=== PATIENT | female | born 1960 | race Caucasian/White ===

== ENCOUNTER 2021-06-21 19:14 | Emergency (ER) | payer MEDICARE ==
[~2021-06-21] VITALS: Ht 157.5 cm; Wt 67.1 kg
[~2021-06-21 19:14] MED LIST: CIPROFLOXACIN500 M1 PO; SYNTHROID100 MCG PO; TAMSULOSIN HCL0.4 M1 PER TUBE; VICODIN 5-5001 EACH PO
[2021-06-21] MEDS ORDERED: LEVETIRACETAM500 M1 (19:21)
[2021-06-21] MEDS ORDERED: LEVO-T100 MCG (19:21)
[2021-06-21 20:39] LABS: HEMATOCRIT 41.5 % (37.0-47.0); HEMOGLOBIN 14.2 gm/dL (12.0-15.0); MCH 31.8 pg (26.0-34.0); MCHC 34.1 g/dL (28.0-37.0); MCV 93.1 fL (80.0-100.0); MPV 7.8 fl. (7.2-11.1); RBC 4.46 mil/uL (4.20-5.00); RDW-CV 13.6 % (10.5-14.5); WBC 9.5 thou/uL (4.0-11.0)
[2021-06-21 20:47] LABS: CALCIUM 8.7 mg/dL (8.5-10.1); CREATININE 0.7 mg/dL (0.6-1.3); POTASSIUM 3.4 mmol/L (3.5-5.1)
[2021-06-21 20:52] LABS: ALBUMIN 3.7 g/dL (3.4-5.0); TOTAL BILIRUBIN 0.3 mg/dL (<0.1-1.0); TOTAL PROTEIN 7.4 g/dL (6.4-8.2)
[2021-06-21 21:47] VITALS: BP 126/71
--- NOTE | 2021-06-22 09:50 | EKG ---
[place] [address] ELECTROCARDIOGRAM REPORT Name: CHRISTINE SMARTNDA FER Room: [facility]#: [id number] Admission: 06/21/21 Attend Phys: Discharge: 06/21/21 Date of : 60 Date of Service: 06/21/211940 Report #: [id number] THIS REPORT FOR: //name// [facility] ED Test Date: 2021-06-21 Test Time: 19:41:01 Pat Name: TIMMY SMART Department: Room: Gender: F [employer]: [place] : 1960 Requested By: Leora Wallace Order Number: [id number] MD: Marciano Lara Measurements Intervals [place] Rate: 73 P: 14 CO: 172 QRS: 2 QRSD: 89 T: 31 QT: 378 QTc: 417 Interpretive Statements Sinus rhythm No previous ECG available for comparison Electronically Signed On 06-22-2021 9:50:00 CDT by Marciano Lara [email or web address] <ELECTRONICALLY SIGNED> By: Marciano Lara MD, [facility] 06/22/21949 40 40 Marciano Lara MD, FACC /EPI
== END 2021-06-21 21:47 | disposition home or self-care (01) ==
LOC: M.ERS 19:14
PROVIDERS: Personal Emergency Response Attendant
DX: G40.909 Epilepsy, unspecified, not intractable, without status epilepticus (principal); F17.210 Nicotine dependence, cigarettes, uncomplicated; Z79.899 Other long term (current) drug therapy